=== PATIENT | male | born 1995 | race Caucasian/White ===

== ENCOUNTER 2020-06-13 17:14 | Emergency (ER) | payer SELFPAY ==
--- NOTE | 2020-06-13 18:28 | EDM.PDOC ---
ED HPI GENERAL MEDICAL PROBLEM - General Chief Complaint: General Stated Complaint: JAW PAIN RT AND LT SIDE Time Seen by Provider: 06/13/20 18:12 Source of Information: Reports: Patient, Family, RN Notes Reviewed History Limitations: Reports: No Limitations - History of Present Illness INITIAL COMMENTS - FREE TEXT/NARRATIVE: Edgar presents today with complaints of right and left ear pain, jaw pain, sores to mouth. He reports he stopped use of tobacco 30 to 90 days ago. He denies fever, chills, nausea, vomiting, change in bowel/bladder function, frequent swimming, SOB, difficulty breathing, eating or other concerns. - Related Data Allergies Allergy/AdvReac Type Severity Reaction Status Date / Time No Known Allergies Allergy Verified 06/13/20 17:35 Home Meds: Home Meds NK [No Known Home Meds] 06/13/20 [History] Past Medical History Musculoskeletal History: Reports: Fracture Social & Family History - Tobacco Use Smoking Status *Q: Never Smoker - Caffeine Use Caffeine Use: Reports: Coffee, Energy Drinks, Soda - Recreational Drug Use Recreational Drug Type: Reports: Marijuana/Hashish ED ROS GENERAL - Review of Systems Review Of Systems: See Below Constitutional: Reports: No Symptoms HEENT: Reports: Dental Pain, Ear Pain, Other Respiratory: Reports: No Symptoms Cardiovascular: Reports: No Symptoms Endocrine: Reports: No Symptoms GI/Abdominal: Reports: No Symptoms : Reports: No Symptoms Musculoskeletal: Reports: No Symptoms Skin: Reports: No Symptoms Neurological: Reports: No Symptoms Psychiatric: Reports: Anxiety (Edgar reports complaints of anxiety at times, denies suicidal/homicidal ideation or plan. ) Hematologic/Lymphatic: Reports: No Symptoms Immunologic: Reports: No Symptoms ED EXAM, GENERAL - Physical Exam Exam: See Below Exam Limited By: No Limitations General Appearance: Alert, WD/WN, No Apparent Distress Eye Exam: Bilateral Eye: EOMI, Normal Inspection, PERRL Ears: Normal External Exam, Normal Canal, Hearing Grossly Normal Ear Exam: Right Ear: Erythema, Swelling, Tenderness, TM Dull, TM Red, Left Ear: Other (Left TM, ear canal normal) Nose: No Blood, Nasal Swelling, Clear Rhinorrhea. No: Nasal Tenderness, Nasal Deformity, Nasal Drainage, Nasal Flaring Throat/Mouth: Normal Lips, Normal Voice, No Airway Compromise, Other (dental decay noted to #27,28,29. Aphtous ulcers to gum line bilateral x 2, to uvula x2, no bleeding) Head: Atraumatic, Normocephalic Neck: Normal Inspection, Supple, Non-Tender, Full Range of Motion. No: Lymphadenopathy (R), Lymphadenopathy (L) Respiratory/Chest: No Respiratory Distress, Lungs Clear, Normal Breath Sounds, No Accessory Muscle Use, Chest Non-Tender Cardiovascular: Normal Peripheral Pulses, Regular Rate, Rhythm, No Edema, No Murmur, No Rub Peripheral Pulses: 2+: Radial (L), Radial (R) Back Exam: Normal Inspection, Full Range of Motion. No: CVA Tenderness (R), CVA Tenderness (L) Extremities: Normal Inspection, Normal Range of Motion, Non-Tender, No Pedal Edema, Normal Capillary Refill Neurological: Alert, Oriented, CN II-XII Intact, Normal Cognition, Normal Gait, Normal Reflexes, No Motor/Sensory Deficits Psychiatric: Normal Affect, Normal Mood Skin Exam: Warm, Dry, Intact, Normal Color, No Rash Lymphatic: No Adenopathy Course - Vital Signs Last Recorded V/S: Last Vital Signs Temp 36.6 C 06/13/20 17:47 Pulse 86 06/13/20 17:47 Resp 14 06/13/20 17:47 BP 160/80 H 06/13/20 17:47 Pulse Ox 98 06/13/20 17:47 Departure - Departure Time of Disposition: 18:26 Disposition: Home, Self-Care 01 Clinical Impression: Otitis media of right ear, Dental caries, Seasonal allergies, Aphthous ulcer - Discharge Information Instructions: Otitis Media, Adult, [id number] Referrals: PCP,None [Primary Care Provider] - Forms: ED Department Discharge Additional Instructions: You have been evaluated and treated for: Otitis media of right ear (right ear infection), Dental caries, Seasonal adan rgies, Aphthous ulcer Take amoxicillin/clavulanate twice a day for 10 days for ear infection. Magic mouthwash gargles as directed for ulcers. Take ibuprofen (advil, motrin) 800mg by mouth three times a day as needed with food for pain. Take cetirizine (zyrtec) one tablet daily for allergies. Use fluticasone, one spray to each side of nose once a day for allergies. Salt water gargles as needed Drink plenty of fluids to stay hydrated. Follow up with primary and dentist as needed. Return for any worsening, issues or concerns. Sepsis Event Note (ED) - Evaluation Sepsis Screening Result: No Definite Risk - Focused Exam Vital Signs: Vital Signs Temp Pulse Resp BP Pulse Ox 06/13/20 17:47 36.6 C 86 14 160/80 H 98 06/13/20 17:26 36.6 C 86 14 180/111 H 98 - Assessment/Plan Assessment:: Otitis media of right ear, Dental caries, Seasonal allergies, Aphthous ulcer Plan: Patient evaluated and treated for: Otitis media of right ear (right ear infection), Dental caries, Seasonal allergies, Aphthous ulcer Take amoxicillin/clavulanate twice a day for 10 days for ear infection. Magic mouthwash gargles as directed for ulcers. Take ibuprofen (advil, motrin) 800mg by mouth three times a day as needed with food for pain. Take cetirizine (zyrtec) one tablet daily for allergies. Use fluticasone, one spray to each side of nose once a day for allergies. Salt water gargles as needed Drink plenty of fluids to stay hydrated. Follow up with primary and dentist as needed. Return for any worsening, issues or concerns.
== END 2020-06-13 18:40 | disposition home or self-care (01) ==
LOC: JP.ED 17:14
DX: K02.9 Dental caries, unspecified (principal); H66.91 Otitis media, unspecified, right ear; K12.0 Recurrent oral aphthae; J30.2 Other seasonal allergic rhinitis; H92.02 Otalgia, left ear
CPT/HCPCS: 99282; 99283

== ENCOUNTER 2024-06-06 09:26 | Emergency (ER) | payer SELFPAY ==
[2024-06-06 09:54] LABS: BASOPHILS PERCENT AUTO 0.4 % (0.1-1.3); EOSINOPHILS ABSOLUTE AUTO 0.08 K/uL (0.00-0.40); EOSINOPHILS PERCENT AUTO 1.7 % (0.0-5.4); HEMOGLOBIN 14.6 g/dL (12.9-16.9); IMMATURE GRAN PERCENT AUTO 0.2 % (0.0-0.7); LYMPHOCYTES ABSOLUTE AUTO 2.05 K/uL (0.8-3.3); LYMPHOCYTES PERCENT AUTO 44.2 % (11.4-47.7); MEAN CORPUSCULAR HGB CONC 35.6 g/dL (31.6-35.5); MEAN CORPUSCULAR VOLUME 89.9 fL (81.4-99.0); MONOCYTES ABSOLUTE AUTO 0.52 K/uL (0.20-0.90); MONOCYTES PERCENT AUTO 11.2 % (3.3-12.6); NEUTROPHILS ABSOLUTE AUTO 1.96 K/uL (1.0-7.6); NEUTROPHILS PERCENT AUTO 42.3 % (40.0-78.1); PLATELET COUNT,PLT 235 K/uL (130-375); RED BLOOD CELL COUNT 4.56 M/uL (4.14-5.76); WHITE BLOOD CELL COUNT,WBC 4.6 K/uL (3.2-11.0)
[2024-06-06 09:59] LABS: BASOPHILS ABSOLUTE AUTO 0.02 K/uL (0.00-0.10); IMMATURE GRAN ABSOLUTE AUTO 0.01 K/uL (0.00-0.23)
[2024-06-06 10:14] LABS: A/G RATIO 1.4 (1.2-2.2); ALANINE AMINOTRANSFERASE,ALT 23 U/L (12-78); ALKALINE PHOSPHATASE 57 U/L (46-116); ANION GAP 10.9 mmol/L (5.0-14.0); ASPARTATE AMNIOTRANSFERASE,AST 12 U/L (15-37); BILIRUBIN TOTAL 0.4 mg/dL (0.2-1.0); BLOOD UREA NITROGEN,BUN 13 mg/dL (7-18); CARBON DIOXIDE,CO2 26 mmol/L (21-32); CHLORIDE,CL 104 mmol/L (100-108); CREATININE 0.9 mg/dL (0.8-1.3); EST CRCL DRUG DOSING (CG) 131.73 mL/min; ESTIMATED GFR 118 mL/min (>60); GLUCOSE RANDOM 101 mg/dL (74-106); POTASSIUM,K 4.1 mmol/L (3.6-5.2); PROTEIN TOTAL,TP 6.8 g/dL (6.4-8.2); SODIUM,NA 141 mmol/L (140-148)
[2024-06-06 10:41] LABS: APPEARANCE,URINE CLEAR (CLEAR); BILIRUBIN,URINE NEGATIVE (NEGATIVE); COLOR,URINE YELLOW (YELLOW); GLUCOSE,URINE NEGATIVE (NEGATIVE); KETONES,URINE NEGATIVE (NEGATIVE); LEUKOCYTE ESTERASE,URINE NEGATIVE (NEGATIVE); NITRITE,URINE NEGATIVE (NEGATIVE); OCCULT BLOOD,URINE NEGATIVE (NEGATIVE); PH,URINE 6.5 (5.0-8.0); PROTEIN,URINE NEGATIVE (NEGATIVE); UROBILINOGEN,URINE 0.2 EU/dL (0.2-1.0)
[2024-06-06 10:47] LABS: AMPHETAMINES SCREEN, URINE PRESUMPTIVE POSITIVE (NEGATIVE); BARBITURATE SCREEN,URINE NEGATIVE (NEGATIVE); BENZODIAZEPINES SCREEN,URINE NEGATIVE (NEGATIVE); METHADONE SCREEN, URINE NEGATIVE (NEGATIVE); METHAMPHETAMINES SCREEN, URINE NEGATIVE (NEGATIVE); OXYCODONE SCREEN,URINE NEGATIVE (NEGATIVE); PROPOXYPHENE SCREEN,URINE NEGATIVE (NEGATIVE); THC SCREEN,URINE 50 NG/ML PRESUMPTIVE POSITIVE (NEGATIVE)
[2024-06-06 10:48] LABS: AMORPHOUS SEDIMENT,URINE NOT SEEN; BACTERIA,URINE NOT SEEN; EPITHELIAL CELLS,URINE NOT SEEN; MUCUS,URINE MODERATE; RBC,URINE 0-5 (0-5); WBC,URINE NOT SEEN (0-5)
== END 2024-06-06 11:57 | disposition home or self-care (01) ==
LOC: JP.ED 09:26
DX: R55 Syncope and collapse (principal)
CPT/HCPCS: 36415; 70450; 70450-26; 80053; 80305-QW; 81001; 84443; 85025; 93005; 93010; 99284